=== PATIENT | female | born 1935 | race Caucasian/White ===

== ENCOUNTER 2018-11-24 08:50 | Day surgery (SDC) | payer MEDICARE, OTHER ==
[2018-11-24] VITALS (16 sets, daily range): BP systolic 112–170; BP diastolic 53–81; PULSE 87–114; RESP 11–23; Ht 147.3 cm; Wt 55.3 kg
[~2018-11-24] VITALS: Ht 147.3 cm; Wt 55.3 kg
[~2018-11-24 08:50] MED LIST: ATOR40TA68 PO; CEFAZOLIN 2 GM/50 ML (PMX) 50 ML IVPB ONE; HYDR25TA6 PO; METO-429 PO; OMEP20CA16 PO; SOD CHLORIDE 0.9% 1,000 ML IV SCH; VANCOMYCIN HCL 2 GM in SOD CHLORIDE 0.9% 500 ML IVPB ONE
--- NOTE | 2018-11-24 11:09 | PREAC ---
Date/Time of Note Date/Time of Note DATE: 11/24/18 TIME: 11:08 Anesthesia Eval and Record Evaluation Time Pre-Procedure Interview DATE: 11/24/18 TIME: 11:08 Age 83 Sex female NPO: 8 hrs Preoperative diagnosis left breast cancer Planned procedure left needle localization partial mastectomy Past Medical History Past Medical History: Includes Cardio: HTN, Dyslipidemia Surgery & Anesthesia Issues No known issue Meds Anticoagulation: No Beta Susana within 24 hr: Yes Reported Medications Omeprazole* (Omeprazole*) 20 Mg Capsule.dr, 20 MG PO DAILY, #30 CAP 11/24/18 Atorvastatin* (Atorvastatin*) 40 Mg Tablet, 40 MG PO QHS, #30 TAB 11/24/18 Hydrochlorothiazide* (Hydrochlorothiazide*) 25 Mg Tab, 25 MG PO DAILY, #30 TAB 11/24/18 Metoprolol Tartrate* (Lopressor*) 50 Mg Tab, 50 MG PO BID, #60 TAB 11/24/18 Current Medications Sodium Chloride 1,000 ml @ 75 mls/hr [id number] IV ; Start 11/24/18 at 06:00; Stop 11/24/18 at 20:00 Meds reviewed: Yes Allergies Coded Allergies: Penicillins (Verified Allergy, Unknown, 11/24/18) aspirin (Verified Allergy, Unknown, 11/24/18) Allergies Reviewed: Yes Labs/Studies Labs Reviewed: Reviewed by anesthesiologist test: N/A Studies: ECG (sr), CXR (nl) Pre-procedure Exam Airway: Adequate mouth opening Mallampati: Mallampati I Teeth: Abnormal (denture) Lung: Normal Heart: Normal ASA Physical Status ASA physical status: 2 Emergency: None Planned Anesthetic General/MAC: LMA, MAC Planned Pain Management Parenteral pain med Pre-operative Attestations Prior to commencing anesthesia and surgery, the patient was re-evaluated, there was verification of: *The patient's identity *The results of appropriate recent lab work and preoperative vital signs *The above evaluation not changing prior to induction *Anesthetic plan, risk benefits, alternative and complications discussed with patient/family; questions answered; patient/family understands, accepts and wishes to proceed. GE MARCELINO MD Nov 24, 2018 11:09
[2018-11-24] MEDS ORDERED: HYDROmorphONE 2 MG/ML SYG ONE (12:30)
[2018-11-24] MEDS ORDERED: PROPOFOL 20 ML ONE (12:44)
[2018-11-24] MEDS ORDERED: METOCLOPRAMIDE 10 MG INJ ONE (12:44)
[2018-11-24] MEDS ORDERED: CEFAZOLIN 1 GM INJ ONE (12:44)
[2018-11-24] MEDS ORDERED: FENTAnyl 50 MCG/ML VIAL ONE (12:44)
[2018-11-24] MEDS ORDERED: ONDANSETRON 4 MG INJ ONE (12:44)
[2018-11-24] MEDS ORDERED: FENTAnyl 50 MCG/ML VIAL IV PRN ×3 (13:00)
[2018-11-24] MEDS ORDERED: HYDROmorphONE 1 MG/5 ML IV SYRINGE IV PRN ×3 (13:00)
[2018-11-24] MEDS ORDERED: DIPHENHYDRAMINE 50 MG INJ IV PRN (13:00)
[2018-11-24] MEDS ORDERED: ONDANSETRON 4 MG INJ IV PRN (13:00)
[2018-11-24] MEDS ORDERED: MEPERIDINE 25 MG INJ IV PRN (13:00)
[2018-11-24] MEDS ORDERED: EPHEDrine 25 MG/5 ML SYG ONE (13:44)
--- NOTE | 2018-11-24 13:46 | SIPON ---
Date/Time of Note Date/Time of Note DATE: 11/24/18 TIME: 13:43 Operative Report Preoperative Diagnosis Invasive cancer left breast Postoperative Diagnosis Same Operation/Procedure Performed Left needle directed partial mastectomy Surgeon see signature line gallery assistant Dr James Anesthesia: general Estimated blood loss: 10 - 50 ml's Transfusion Required none Specimen Left partial mastectomy specimen Grafts/Implants none Complications none KARON IGLL MD Nov 24, 2018 13:46
[2018-11-24] MEDS ORDERED: HYDROCODONE/APAP (7.5/325) TAB PO PRN (14:00)
--- NOTE | 2018-11-25 02:37 | OPR ---
DATE OF OPERATION: 11/24/2018 PREOPERATIVE DIAGNOSIS: Invasive cancer, left breast. POSTOPERATIVE DIAGNOSIS: Invasive cancer, left breast. OPERATION PERFORMED: Left needle-directed partial mastectomy. ANESTHESIA: General. ANESTHESIOLOGIST: Thuy Yanez MD SURGEON: Roque De Luna MD CLINIC ADMINISTRATOR: Xavier James MD INDICATIONS FOR PROCEDURE: The patient is an 83-year-old female who noticed a lump in her left breas t. She underwent workup including mammography, ultrasonography and biopsy which confirmed greater th an 2 cm invasive cancer. The patient and family underwent discussions. Based on the patient's age a nd comorbidities, decision was made that sentinel lymph node biopsy was not indicated as it would not affect further treatment as the patient would not be a candidate for chemotherapy. The patient was then counseled as to the benefit of needle-directed partial mastectomy. She consented and was schedu led for surgery. DESCRIPTION OF PROCEDURE: On the morning of surgery, the patient presented to [facility] [place] [facility] where she underwent localization of the lesion performed by attending radiolog ist, Dr. Kwesi Anderson. Subsequently, she was brought to the operating theater, placed under gener al anesthesia. The left breast was prepped and draped in usual sterile fashion. A curvilinear incis ion was made in the upper outer quadrant of the left breast in the region of the previously placed lo calization wire. Subcutaneous tissue was dissected with cautery. The skin edges were elevated with skin hooks and wide circumferential dissection of the tissue associated with the tumor was accomplish ed with cautery, taking great care to ensure adequate margin. Dissection continued down to the pecto ralis major fascia. The specimen was then elevated and transected off of the pectoralis major muscle . Specimen was then oriented and sent for radiographic confirmation of capture. Capture was confirm ed. Specimen was then sent for permanent pathologic analysis. The wound was irrigated. Minimal ble eding was controlled with cautery, and the skin was then reapproximated with a deep dermal layer of 4 -0 Vicryl sutures in interrupted fashion, followed by final skin approximation with 5-0 PDS sutures i n subcuticular fashion and Dermabond was applied. The patient tolerated the procedure well. The est imated blood loss was 20 mL. There were no complications and the patient was transported in stable c ondition to recovery room where circumferential compression dressing was applied. Dictated By: ROQUE ORTIZ/FRANCISCO Conf#: [id number] [facility]#: [id number]
--- NOTE | 2018-11-25 12:20 | PAC ---
Date/Time of Note Date/Time of Note DATE: 11/25/18 TIME: 12:20 Post-Anesthesia Notes Post-Anesthesia Note Last documented vital signs Vital Signs Date Temp Pulse Resp B/P (MAP) Pulse Ox O2 O2 Flow FiO2 Time Delivery Rate 11/24/18 98.0 87 17 112/78 100 Room Air 15:04 (89) 11/24/18 2.0 14:42 Activity: WNL Respiratory function: WNL Cardiovascular function: WNL Mental status: Baseline Pain reasonably controlled: Yes Hydration appropriate: Yes Nausea/Vomiting absent: No GE MARCELINO MD Nov 25, 2018 12:20
== END 2018-11-24 16:08 | disposition home or self-care (01) ==
LOC: SDS 08:50
PROVIDERS: ATTEND Surgery Surgical Oncology
DX: C50.912 Malignant neoplasm of unspecified site of left female breast (principal); I10 Essential (primary) hypertension; E78.5 Hyperlipidemia, unspecified
CPT/HCPCS: 19301; 88300; 88307; J0690; J2405; J2765; J3010; J3370; J7030; J7040; 71045; 80053; 85025; 85610; 85730; 93005; J1170